=== PATIENT | male | born 1950 | race Caucasian/White ===

== ENCOUNTER 2018-04-26 20:43 | Emergency (ER) | payer OTHER ==
[2018-04-26] MEDS ORDERED: ACETAMINOPHEN 325 MG TAB PO ONE (21:27)
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
[2018-04-26 21:51] VITALS: BP 150/97
== END 2018-04-26 22:45 | disposition home or self-care (01) ==
DX: R07.89 Other chest pain (principal); E03.9 Hypothyroidism, unspecified; E78.00 Pure hypercholesterolemia, unspecified